=== PATIENT | female | born 1975 | race Caucasian/White ===

== ENCOUNTER 2023-08-11 05:24 | Observation (INO) | payer MEDICARE, MEDICAID ==
[2023-08-03 11:01] LABS: BASOPHILS % (AUTO) 0.4 % (0-1); EOSINOPHILS # (AUTO) 0.2 X10'3 (0-0.9); EOSINOPHILS % (AUTO) 2.1 % (0-6); LYMPHOCYTES # (AUTO) 1.6 X10'3 (1.1-4.8); LYMPHOCYTES % (AUTO) 19.5 % (21-51); MEAN CORPUSCULAR HEMOGLOBIN 31.8 PG (27.0-31.0); MEAN CORPUSCULAR HGB CONC 33.2 g/dL (33.0-36.5); MEAN CORPUSCULAR VOLUME 95.8 FL (78-98); MEAN PLATELET VOLUME 7.1 FL (7.4-10.4); MONOCYTES # (AUTO) 0.7 X10'3 (0-0.9); MONOCYTES % (AUTO) 8.1 % (2-12); NEUTROPHILS # (AUTO) 5.8 X10'3 (1.8-7.7); NEUTROPHILS % (AUTO) 69.9 % (42-75); PRE OP HEMATOCRIT 42.6 % (35.0-45.0); PRE OP HEMOGLOBIN 14.1 g/dL (12.0-16.0); PRE OP PLATELET COUNT 318 X10'3 (140-440); PRE OP WHITE BLOOD COUNT 8.4 10'3 (4.8-10.8); RED BLOOD COUNT 4.44 X10'6 (4.20-5.60); RED CELL DISTRIBUTION WIDTH 14.7 % (11.5-14.5)
[2023-08-03 11:12] LABS: PRE OP PROTIME 9.8 SECONDS (9.0-12.0)
[2023-08-03 11:15] LABS: ALBUMIN 3.5 G/DL (3.4-5.0); ALBUMIN/GLOBULIN RATIO 0.9 (1.1-1.5); ALKALINE PHOSPHATASE 135 IU/L (46-116); BLOOD UREA NITROGEN 10 MG/DL (7-18); BUN/CREATININE RATIO 11.8 (10.0-20.0); CALCIUM 9.1 MG/DL (8.5-10.1); CHLORIDE 105 MMOL/L (99-107); CREATININE 0.85 MG/DL (0.40-0.90); PRE OP ALT 39 U/L (30-65); PRE OP ANION GAP 8 (8-16); PRE OP AST 17 U/L (10-37); PRE OP BILIRUB, TOTAL 0.2 MG/DL (0.0-1.0); PRE OP GLUCOSE 112 MG/DL (70-104); PRE OP POTASSIUM 3.9 MMOL/L (3.4-5.1); PRE OP SODIUM 140 MMOL/L (135-145); TOTAL PROTEIN 7.3 G/DL (6.4-8.2); eGFR 71 ML/MIN
[2023-08-03 11:17] LABS: PRE OP INR 0.9 INR
[2023-08-11] VITALS (29 sets, daily range): BP systolic 98–137; BP diastolic 43–77; PULSE 68–90; RESP 11–24; TEMP 97.9–98.2; O2SAT 92–98
[~2023-08-11] VITALS: Ht 167.6 cm; Wt 88.2 kg
[~2023-08-11 05:24] MED LIST: CHOL20003 PO; MVI; RISP3TAB63 PO; SERT150C PO; TOP100T PO; TRAZ-256 PO; VITAMIN B; VITAMIN C; ZINC
[2023-08-11] MEDS ORDERED: cefazolin 2gm/D5W 100mL 100 ML IV ONE (05:30)
[2023-08-11] MEDS ORDERED: famotidine 20mg tablet PO ONE (05:30)
[2023-08-11] MEDS: ringers solution, lacted 1,000 ML IV SCH ×6 (06:00→23:07)
[2023-08-11] MEDS ORDERED: methylene blue (5mg/ml) 50mg/10ml ampul IV ONE (06:53)
[2023-08-11] MEDS ORDERED: BUPIVAcaine/PF 2.5mg/ml (0.25%) 10ml vial ONE (06:54)
[2023-08-11] MEDS ORDERED: albuterol 2.5 MG/3 ML nebule NEB ONE (07:10)
[2023-08-11] MEDS ORDERED: fentaNYL/PF 50MCG/1 ML 2ML syringe ONE ×4 (07:21→09:32)
[2023-08-11] MEDS ORDERED: midazolam 1 mg/ML 2ml injection ONE (07:21)
[2023-08-11] MEDS ORDERED: propofol inj 20 ML IV ONE (07:22)
[2023-08-11] MEDS ORDERED: LIDOcaine 2% (20mg/ml) 5ml vial ONE (07:22)
[2023-08-11] MEDS ORDERED: BUPIVAcaine 0.5% inj/PF 30 ML ONE (07:25)
[2023-08-11] MEDS ORDERED: ROPIVAcaine 0.5% (5mg/ml) 30ml vial ONE (07:27)
[2023-08-11] MEDS ORDERED: sevoflurane 250ml liquid IH ONE (07:35)
[2023-08-11] MEDS ORDERED: acetaminophen 1,000mg/100ml IV 100 ML IV ONE (08:03)
[2023-08-11] MEDS ORDERED: dexamethasone sod phosphate 4mg/ml inj. ONE (08:20)
[2023-08-11] MEDS ORDERED: ondansetron/PF 4mg/2ml inj ONE (08:20)
[2023-08-11] MEDS ORDERED: ondansetron/PF 4mg/2ml inj IV PRN ×3 (08:40→14:15)
[2023-08-11] MEDS ORDERED: ringers solution, lacted 1,000 ML IV SCH (08:40)
[2023-08-11] MEDS ORDERED: fentaNYL/PF 50MCG/1 ML 2ML syringe IV PRN ×2 (08:40)
[2023-08-11] MEDS ORDERED: labetalol 20mg/4ml (5mg/ml) syringe IV PRN (08:40)
[2023-08-11] MEDS ORDERED: HYDROmorphone/PF 0.2 MG/ML SYRINGE IV PRN ×3 (08:40→14:15)
[2023-08-11] MEDS ORDERED: hydrALAZINE 20mg/ml inj. IV PRN (08:40)
--- NOTE | 2023-08-11 11:01 | NUR ---
Received from OR via STRETCHER, accompanied by Anesthesiologist PATRICK and report given by Anesthesiolgist. PT IS UNRESPONSIVE TO VERBAL OR TACTILE STIMULI. ORAL AIRWAY IN PLACE. BREATHING IS MILDLY SONOROUS, AND MILDLY LABORED. O2 10 LPM PER MASK - SAO2>94%. SR. VSS. IONA WRAP TO CHEST IS DRY AND INTACT. PATRICIA DRAINS BILATERALLY HAVE SMALL AMOUNT OF SANGUINOUS DG. 20 G IV TO L HAND PATENT INFUSING LR. Addendum: 08/11/23 at 1120 by Lester Burrows RN Amended: Links added.
--- NOTE | 2023-08-11 11:30 | NUR ---
PT NOW RESPONDING TO VERBAL STIMULI. DENIES PAIN. BREATHING NORMALLY - ORAL AIRWAY REMOVED. BLAND AFFECT. Addendum: 08/11/23 at 1140 by Lester Burrows RN Amended: Links added.
[2023-08-11] MEDS ORDERED: acetaminophen w/codeine (30MG) #3 tablet PO PRN (11:40)
--- NOTE | 2023-08-11 13:16 | NUR ---
Patient in room PAS IN 900. I have received report from Savanah and had the opportunity to ask questions and assume patient care.
--- NOTE | 2023-08-11 13:21 | NUR ---
Report called to receiving nurseCANDACE Transferred via STRETCHER Belongings INCLUDING LEG BRACES AND ROLLING WALKER TAKEN W/ PT. PT ABLE TO ASSIST IN MOVING FROM STRETCHER TO BED W/OUT REPORT OF PAIN. SHE CONTINUES TO HAVE A BLAND AFFECT, BUT RESPONDS APPROPRIATELY TO QUESTIONS AND CONVERSATIONS. PT HAS INCONTINENCE ISSUES - WEARING PROTECTIVE UNDERGARMENT THAT IS DRY. PT STATES SHE DOES USE COMMODE MOST OF THE TIME. CONTINUES ON O2 AT 3 LPM TO KEEP SAO2>96. PATRICIA DRAINS EMPTIED - 75 ML FROM R, 50 FROM L. IONA WRAP TO CHEST D&I. 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 INSTRUCTED IN USE OF IS - ABLE TO OBTAIN 2000 ML W/FAIR EFFORT. PT SETTLED IN ROOM - FACE TO FACE TRANSFER OF CARE. CALL LIGHT PROVIDED TO PT. Addendum: 08/11/23 at 1441 by Lester Burrows RN Amended: Links added.
--- NOTE | 2023-08-11 13:45 | NUR ---
Received pt from [facility]. Pt A&Ox4, denies pain. Pt on 3L NC, has 2 PATRICIA drains and randa wraps around chest, CDI. Oriented pt to room and equipment.
[2023-08-11] MEDS ORDERED: potassium Cl 20 mEq SR tablet PO PRN ×2 (14:15)
[2023-08-11] MEDS ORDERED: magnesium Cl slow-release 64mg tablet PO PRN (14:15)
[2023-08-11] MEDS ORDERED: acetaminophen 325mg tablet PO PRN ×2 (14:15)
[2023-08-11] MEDS ORDERED: potassium Cl 40MEQ/1/2NS 520ml 520 ML IV PRN (14:15)
[2023-08-11] MEDS ORDERED: magnesium 2GM in 50ml NS 50 ML IV PRN (14:15)
[2023-08-11] MEDS ORDERED: magnesium 4gm in 100ml NS 100 ML IV PRN (14:15)
[2023-08-11] MEDS ORDERED: albuterol 2.5 MG/3 ML nebule NEB PRN (16:00)
[2023-08-11] MEDS: ceFAZolin 1GM/D5W- ADD-VANTAGE 50 ML IV SCH (17:01)
--- NOTE | 2023-08-11 18:32 | NUR ---
Problems reprioritized. Patient report given, questions answered & plan of care reviewed with Prudence.
--- NOTE | 2023-08-11 19:19 | NUR ---
Patient in room ORTHO 4013. I have received report from MILTON CHAMORRO and had the opportunity to ask questions and assume patient care.
[2023-08-11] MEDS ORDERED: enoxaparin 40mg/0.4ml syringe SQ SCH (20:00)
[2023-08-11] MEDS: HYDROmorphone inj. 0.5 MG/0.5 ML DISP.SYRIN IV PRN (20:05)
[2023-08-11] MEDS ORDERED: temazepam 15mg capsule PO PRN (21:00)
[2023-08-12] MEDS: ceFAZolin 1GM/D5W- ADD-VANTAGE 50 ML IV SCH ×2 (00:29→08:58)
[2023-08-12 02:00] VITALS: BP 102/53; PULSE 69; RESP 17; TEMP 97.6; O2SAT 96
[2023-08-12] MEDS: HYDROmorphone inj. 0.5 MG/0.5 ML DISP.SYRIN IV PRN (03:09)
[2023-08-12 06:00] VITALS: BP 96/46; PULSE 64; RESP 16; TEMP 98.1; O2SAT 95
[2023-08-12 06:12] LABS: BASOPHILS % (AUTO) 0.3 % (0-1); EOSINOPHILS # (AUTO) 0.1 X10'3 (0-0.9); EOSINOPHILS % (AUTO) 0.7 % (0-6); HEMATOCRIT 34.4 % (35.0-45.0); HEMOGLOBIN 11.4 g/dl (12.0-16.0); LYMPHOCYTES # (AUTO) 2.8 X10'3 (1.1-4.8); LYMPHOCYTES % (AUTO) 24.2 % (21-51); MEAN CORPUSCULAR HEMOGLOBIN 31.7 PG (27.0-31.0); MEAN CORPUSCULAR HGB CONC 33.1 g/dL (33.0-36.5); MEAN CORPUSCULAR VOLUME 95.8 FL (78-98); MONOCYTES % (AUTO) 8.7 % (2-12); NEUTROPHILS # (AUTO) 7.6 X10'3 (1.8-7.7); NEUTROPHILS % (AUTO) 66.1 % (42-75); PLATELET COUNT 242 X10'3 (140-440); RED BLOOD COUNT 3.59 X10'6 (4.20-5.60); RED CELL DISTRIBUTION WIDTH 14.6 % (11.5-14.5); WHITE BLOOD COUNT 11.5 X10'3 (4.5-11.0)
--- NOTE | 2023-08-12 06:24 | NUR ---
Problems reprioritized. Patient report given, questions answered & plan of care reviewed with MILTON CHAMORRO.
[2023-08-12 06:34] LABS: ALANINE AMINOTRANSFERASE 161 U/L (12-78); ALBUMIN 2.7 G/DL (3.4-5.0); ALBUMIN/GLOBULIN RATIO 0.9 (1.1-1.5); ALKALINE PHOSPHATASE 108 IU/L (46-116); ANION GAP 5 (8-16); ASPARTATE AMINO TRANSFERASE 90 U/L (10-37); BILIRUBIN,TOTAL 0.3 MG/DL (0.1-1.0); BLOOD UREA NITROGEN 8 MG/DL (7-18); BUN/CREATININE RATIO 11.8 (10.0-20.0); CALCIUM 8.6 MG/DL (8.5-10.1); CHLORIDE 108 MMOL/L (99-107); CREATININE 0.68 MG/DL (0.40-0.90); GLUCOSE 105 MG/DL (70-104); POTASSIUM 3.5 MMOL/L (3.5-5.1); SODIUM 141 MMOL/L (135-145); TOTAL CARBON DIOXIDE 27.7 MMOL/L (24-32); TOTAL PROTEIN 5.6 G/DL (6.4-8.2); eCRCL 95 ML/MIN; eGFR > 90 ML/MIN
--- NOTE | 2023-08-12 06:48 | NUR ---
Patient in room ORTHO 4013. I have received report from Charline and had the opportunity to ask questions and assume patient care.
[2023-08-12] MEDS: HYDROcodone/acetaminophen 5mg/325mg tablet PO PRN ×2 (08:46→11:58)
[2023-08-12] MEDS ORDERED: sertraline 50mg tablet PO SCH (09:30)
[2023-08-12 10:00] VITALS: BP 98/61; PULSE 72; RESP 15; TEMP 98.8; O2SAT 95
[2023-08-12] MEDS ORDERED: HYDROcodone/acetaminophen 5mg/325mg tablet PO PRN (11:30)
[2023-08-12 11:58] VITALS: RESP 16
[2023-08-12] MEDS ORDERED: topiramate 100mg tablet PO SCH (20:00)
[2023-08-12] MEDS ORDERED: risperiDONE 2mg tablet PO SCH (21:00)
[2023-08-12] MEDS ORDERED: traZODone 50mg tablet PO SCH (21:00)
== END 2023-08-12 16:20 | disposition home or self-care (01) ==
LOC: PAS 05:24 → PAS IN 11:51 → ORTHO 4S 13:40
PROVIDERS: ADMIT Surgery; ATTEND Surgery
DX: C50.911 Malignant neoplasm of unspecified site of right female breast (principal); F31.9 Bipolar disorder, unspecified; F41.8 Other specified anxiety disorders; F17.200 Nicotine dependence, unspecified, uncomplicated; Z15.01 Genetic susceptibility to malignant neoplasm of breast; Z79.899 Other long term (current) drug therapy
CPT/HCPCS: 19303; 36415; 38525; 38900; 80053; 82948; 85025; 85610; 85730; 93005; 94640; 94760; 96365; 96366; 96372; 96375; 96376; G0378; J0131; J0690; J1100; J1170; J1650; J2250; J2405; J2704; J2795; J3010; J3490; J7120; Q9968; S0020; A4215; A4615; A4618; A6253; A6449; A7000